=== PATIENT | male | born 1995 | race Caucasian/White ===

== ENCOUNTER 2022-10-25 11:27 | Emergency (ER) | payer MEDICAID ==
[~2022-10-25] VITALS: Ht 170.2 cm; Wt 86.2 kg
[2022-10-25] MEDS ORDERED: ACETAMINOPHEN ES 500 MG TABLET ONE (11:58)
[2022-10-25] MEDS ORDERED: ACETAMINOPHEN ES 500 MG TABLET PO ONE (12:00)
[2022-10-25] MEDS ORDERED: IV NS 0.9% 1,000 ML BAG IV ONE (12:00)
--- NOTE | 2022-10-25 12:00 | NUR ---
IV ESTABLISHED. R FA 22G PATENT AND INTACT
--- NOTE | 2022-10-25 12:02 | NUR ---
ludwin, tried to admit himself at [facility], per [facility] "faked his seizure" SEIZURE PRECAUTION RENDERED
[2022-10-25 12:13] LABS: BASOPHILS % (AUTO) 0.5 % (0.0-2.0); EOSINOPHILS % (AUTO) 3.1 % (0.0-6.0); HEMATOCRIT 40 % (39-51); HEMOGLOBIN 12.7 g/dL (13.5-17.5); LYMPHOCYTES # (AUTO) 2.6 K/uL (0.8-4.8); LYMPHOCYTES % (AUTO) 51.4 % (20.0-44.0); MEAN CORPUSCULAR HGB CONC 32 g/dl (31.0-36.0); MEAN CORPUSCULAR VOLUME 84 fL (80-96); MONOCYTES # (AUTO) 0.3 K/uL (0.1-1.30); MONOCYTES % (AUTO) 6.2 % (2.0-12.0); NEUTROPHILS % (AUTO) 38.8 % (43.0-81.0); PLATELET COUNT (AUTO) 187 K/uL (150-450); RED BLOOD CELL COUNT(AUTO) 4.78 MIL/uL (4.5-6.0); WHITE BLOOD COUNT (AUTO) 5.1 K/uL (4.3-11.0)
--- NOTE | 2022-10-25 12:36 | NUR ---
PT TAKEN TO CT
[2022-10-25 12:54] LABS: CALCIUM, SERUM 8.4 mg/dL (8.5-10.1); CREATININE 0.8 mg/dL (0.6-1.3); POTASSIUM 4.1 mmol/L (3.5-5.1)
[2022-10-25 13:05] LABS: ALBUMIN 3.5 g/dL (3.4-5.0); BILIRUBIN,DIRECT 0.1 mg/dL (0.0-0.2); BILIRUBIN,TOTAL 0.3 mg/dL (0.2-1.0); TOTAL PROTEIN, SERUM 7.2 g/dL (6.4-8.2)
--- NOTE | 2022-10-25 14:05 | NUR ---
CALLED [facility] FOR [id number]. ETA [id number]
--- NOTE | 2022-10-25 15:10 | NUR ---
Patient discharged to [facility] in stable condition ambulating by slef, with [facility] employee. Written and verbal after care instructions given. Patient verbalizes understanding of instruction.
[2022-10-25 15:11] VITALS: BP 130/82
== END 2022-10-25 15:12 | disposition home or self-care (01) ==
LOC: ER 11:29
DX: R56.9 Unspecified convulsions (principal)
CPT/HCPCS: 99284; 96360; 70450; 85025; 80048; 80076; 36415; J7030